=== PATIENT | male | born 1995 | race Two or more races ===

== ENCOUNTER 2019-03-02 19:49 | Emergency (ER) | payer SELFPAY ==
--- NOTE | 2019-03-02 21:48 | ED ---
GI/ HPI - HPI Summary HPI Summary: Patient is a 23 y/o M presenting to [facility] with complaints of N/V and HERRERA. Sx onset yesterday, 03/01/19, and worsened 03/02/19. He denies diarrhea and abdominal pain. No abdominal surgeries noted. He is a non-smoker. On triage, pain is rated 6/10, nothing is noted to aggravate/alleviate Sx. Home medications and allergies are reviewed. - History of Current Complaint Chief Complaint: EDNauseaVomitDiarrh Time Seen by Provider: 03/02/19 21:32 Stated Complaint: UNABLE TO EAT/VOMITING Hx Obtained From: Patient Onset/Duration: Started Days Ago, Still Present, Worse Since Timing: Constant, Lasting Days Severity: Moderate Current Severity: Moderate Pain Intensity: 6 Location of Pain: Other - head Associated Signs and Symptoms: Positive: Nausea, Vomiting, Other: - headache Aggravating Factor(s): Nothing Alleviating Factor(s): Nothing - Allergy/Home Medications Allergies/Adverse Reactions: Allergies Allergy/AdvReac Type Severity Reaction Status Date / Time No Known Allergies Allergy Verified 03/02/19 20:01 PMH/Surg Hx/FS Hx/Imm Hx Sensory History: Denies: Hx Legally Blind, Hx Deafness Opthamlomology History: Denies: Hx Legally Blind EENT History: Denies: Hx Deafness Infectious Disease History: No Infectious Disease History: Denies: Traveled Outside the [place] in Last 30 Days - Family History Known Family History: Negative: Blood Disorder - Social History Alcohol Use: None Substance Use Type: Reports: None Smoking Status (MU): Never Smoked Tobacco Review of Systems Positive: Vomiting, Nausea. Negative: Abdominal Pain, Diarrhea Positive: Headache All Other Systems Reviewed And Are Negative: Yes Physical Exam - Summary Physical Exam Summary: Appearance: Well-appearing, Well-nourished, lying in bed comfortably Skin: Warm, dry, no obvious rash Eyes: sclera anicteric, no conjunctival pallor ENT: mucous membranes moist, pharynx appears normal Neck: Supple, nontender Respiratory: Clear to auscultation, no signs of respiratory distress Cardiovascular: Normal S1, S2. No murmurs. Normal distal pulses in tibial and radial bilaterally. Abdomen: Soft, nontender, normal active bowel sounds present Musculoskeletal: Normal, Strength/ROM Intact Neurological: A&Ox3, awake and alert, mentation is normal, speech is fluent and appropriate Psychiatric: affect is normal, does not appear anxious or depressed Triage Information Reviewed: Yes Vital Signs On Initial Exam: Initial Vitals Temp Pulse Resp BP Pulse Ox 97.9 F 68 18 133/69 99 03/02/19 19:53 03/02/19 19:53 03/02/19 19:53 03/02/19 19:53 03/02/19 19:53 Vital Signs Reviewed: Yes Procedures - Sedation Patient Received Moderate/Deep Sedation with Procedure: No Diagnostics - Vital Signs Vital Signs Temp Pulse Resp BP Pulse Ox 03/02/19 19:53 97.9 F 68 18 133/69 99 - Laboratory Result Diagrams: 03/02/19 21:49 03/02/19 21:49 Lab Statement: Any lab studies that have been ordered have been reviewed, and results considered in the medical decision making process. GIGU Course/Dx - Course Course Of Treatment: Patient is a 23 y/o M presenting to [facility] with complaints of N/V and HERRERA. Sx onset yesterday, 03/01/19, and worsened 03/02/19. He denies diarrhea and abdominal pain. No abdominal surgeries noted. He is a non-smoker. On triage, pain is rated 6/10, nothing is noted to aggravate/alleviate Sx. Physical exam is unremarkable. Bloodwork was obtained and within normal limits with exception of MPV 7, absolute neuts 9.4, absolute lymphs 0.9, chloride 100, BUN/creatinine ratio 23.2, glucose 114, calcium 10.4. Patient was discharged to home with prescription for Zofran. He will follow up with PCP in three days. - Diagnoses Provider Diagnoses: Nausea & vomiting Discharge ED - Sign-Out/Discharge Documenting (check all that apply): Patient Departure - discharge - Discharge Plan Condition: Good Disposition: HOME Prescriptions: Ondansetron ODT TAB* [Zofran 4 MG Odt TAB*] 8 mg PO Q6H PRN #10 tab.odt PRN Reason: Nausea Patient Education Materials: Acute Nausea and Vomiting (ED) Print Language: SWEDISH Referrals: [facility] [Outside] - 3 Days (si no mejor) - Billing Disposition and Condition Condition: GOOD Disposition: Home - Attestation Statements Document Initiated by Scribe: Yes Documenting Scribe: FER SHARIF Provider For Whom Scribe is Documenting (Include Credential): MAGDI BISWAS MD Scribe Attestation: I, FER SHARIF, scribed for MAGDI BISWAS MD on 03/03/19 at 0643. Scribe Documentation Reviewed: Yes Provider Attestation: The documentation as recorded by the andrewibeFER accurately reflects the service I personally performed and the decisions made by me, MAGDI BISWAS MD Status of Scribe Document: Viewed
[2019-03-02 22:02] LABS: Hematocrit 43 % (42-52); Hemoglobin 14.5 g/dL (14.0-18.0); Mean Corpuscular HGB Conc 34 g/dL (31-36); Mean Corpuscular Hemoglobin 29 pg (27-31); Mean Corpuscular Volume 85 fL (80-94); Red Blood Count 5.02 10^6 /uL (4.18-5.48); Red Cell Distribution Width 14 % (10-15); White Blood Count 10.7 10^3/uL (3.5-10.8)
[2019-03-02 22:15] LABS: Albumin 4.8 g/dL (3.2-5.2); Albumin/Globulin Ratio 1.5 (1-3); BUN/Creatinine Ratio 23.2 (8-20); Calcium 10.4 mg/dL (8.6-10.3); EGFR African American 170.5 (>60); EGFR Non-African American 140.9 (>60); Globulin 3.1 g/dL (2-4); Potassium 3.5 mmol/L (3.5-5.0); Total Bilirubin 0.7 mg/dL (0.2-1.0); Total Protein 7.9 g/dL (6.4-8.9)
[2019-03-02 22:27] LABS: ABS Lymphocytes 0.9 10^3/ul (1.0-4.8); ABS Monocytes 0.4 10^3/ul (0-0.8); ABS Neutrophils 9.4 10^3/ul (1.5-7.7); ABS Nucleated RBC 0.1 10^3/ul; Lymphocyte % 8.2 %; Nucleated Red Blood Cells % 0.9; Platelet Count 379 10^3/uL (150-450)
[2019-03-03 00:17] VITALS: BP 111/60
== END 2019-03-03 00:15 | disposition home or self-care (01) ==
LOC: ED 19:49
DX: R11.2 Nausea with vomiting, unspecified (principal); R51 Headache
CPT/HCPCS: 36415; 80053; 85025; 99282